=== PATIENT | male | born 1995 | race Caucasian/White ===

== ENCOUNTER 2018-04-29 15:19 | Emergency (ER) | payer OTHER ==
[~2018-04-29] VITALS: Ht 172.7 cm; Wt 63.5 kg
[~2018-04-29 15:19] MED LIST: Bactrim Ds Tab1 EACH PO; Norco 5-325 Ta1 EACH PO
[2018-04-29] MEDS ORDERED: VALA500 PO (16:21)
[2018-05-02 22:12] LABS: CHLAMYDIA TRACHOMATIS, NAA Negative (Negative); NEISSERIA GONORRHOEAE, NAA Negative (Negative)
== END 2018-04-29 16:46 | disposition home or self-care (01) ==
LOC: ER 15:19
PROVIDERS: Physician Assistant
DX: A60.01 Herpesviral infection of penis (principal); F17.200 Nicotine dependence, unspecified, uncomplicated
CPT/HCPCS: 87529; 99283